=== PATIENT | male | born 1965 ===

== ENCOUNTER 2019-10-13 04:02 | Emergency (ER) | payer SELFPAY ==
[~2019-10-13] VITALS: Ht 172.7 cm; Wt 72.7 kg
[2019-10-13 04:54] LABS: HEMATOCRIT 41.1 % (39.0-50.0); HEMOGLOBIN 13.9 g/dl (14.0-18.0); IMMATURE GRANULOCYTES 0.2 % (0.0-5.0); MEAN CELL VOLUME 89.3 fL CALC (80.0-100.0); MEAN CORPUSCULAR HGB 30.2 pG CALC (26.0-32.0); MEAN CORPUSCULAR HGB CONC 33.8 g/dL CAL (32.0-36.0); NEUT# 6.59 thou/uL (1.82-7.42); RED BLOOD COUNT 4.6 mill/uL (4.70-6.10); RED CELL DISTRI WIDTH 12.7 % (11.5-15.5)
[2019-10-13 05:07] LABS: ACT PARTIAL THROMBO TIME 28.1 SECONDS (20.0-32.5); ALBUMIN 4.6 g/dL (3.2-5.0); ALKALINE PHOSPHATASE 93 u/l (38-126); ANION GAP 10 (6-22 (CALC)); BILIRUBIN, TOTAL 0.7 mg/dL (0.0-1.4); BUN 6 mg/dL (9-20); BUN/CREATININE RATIO 7 (12-20 (CALC)); CARBON DIOXIDE 29 mmol/l (22-30); CHLORIDE 100 mmol/l (95-108); CREATININE 0.9 mg/dL (0.7-1.3); GFR > 60 ML/MIN (>=60 (CALC)); GFR FOR AFR.AMER. > 60 ML/MIN (>=60 (CALC)); LIPASE 68 u/l (23-300); POTASSIUM 3.3 mmol/l (3.5-5.1); PROTHROMBIN TIME 9.6 SECONDS (9.0-12.5); SGOT/AST 25 u/l (17-59); SODIUM 136 mmol/l (137-146); TOTAL PROTEIN 8.4 g/dL (6.3-8.2)
[2019-10-13] MEDS ORDERED: CEPHALEXIN500 M1 PO (07:50)
[2019-10-13] MEDS ORDERED: BACTRIM DS1 TAB PO (07:50)
[2019-10-13 10:12] VITALS: BP 147/89
== END 2019-10-13 10:13 | disposition home or self-care (01) | DRG 603 ==
LOC: ED 04:02
DX: L03.116 Cellulitis of left lower limb (principal)

== ENCOUNTER 2022-05-22 14:52 | Emergency (ER) | payer OTHER ==
[~2022-05-22] VITALS: Ht 172.7 cm; Wt 79.3 kg
[~2022-05-22 14:52] MED LIST: BACTRIM DS1 TAB PO; CEPHALEXIN500 M1 PO
[2022-05-22 15:29] LABS: EOS% 6.7 % (0-8); HEMOGLOBIN 13.7 g/dl (14.0-18.0); LYMPH% 31.2 % (15-41); MEAN CELL VOLUME 89.6 fL CALC (80.0-100.0); MEAN CORPUSCULAR HGB 29.2 pG CALC (26.0-32.0); MEAN CORPUSCULAR HGB CONC 32.6 g/dL CAL (32.0-36.0); NEUT# 2.73 thou/uL (1.82-7.42); NEUT% 52.1 % (42-76); RED BLOOD COUNT 4.69 mill/uL (4.70-6.10); RED CELL DISTRI WIDTH 12.9 % (11.5-15.5)
[2022-05-22 15:40] LABS: ALBUMIN 4.5 g/dL (3.2-5.0); ALKALINE PHOSPHATASE 82 u/l (38-126); ANION GAP 10 (6-22 (CALC)); BUN 25 mg/dL (9-20); BUN/CREATININE RATIO 26 (12-20 (CALC)); CARBON DIOXIDE 25 mmol/l (22-30); CHLORIDE 107 mmol/l (95-108); ETHYL ALCOHOL 0 mg/dl (0-30); GFR FOR AFR.AMER. > 60 ML/MIN (>=60 (CALC)); GFR OTHER RACES > 60 ML/MIN (>=60 (CALC)); POTASSIUM 3.5 mmol/l (3.5-5.1); SGOT/AST 35 u/l (17-59); SODIUM 139 mmol/l (137-146); TOTAL PROTEIN 8.2 g/dL (6.3-8.2)
[2022-05-22 16:05] LABS: BILIRUBIN, TOTAL 0.4 mg/dL (0.2-1.3)
[2022-05-22 16:14] LABS: URINE BLOOD DIPSTICK NEGATIVE (NEGATIVE); URINE CLARITY CLEAR; URINE COLOR YELLOW; URINE GLUCOSE - DIPSTICK NEGATIVE (NEGATIVE); URINE KETONE NEGATIVE (NEGATIVE); URINE LEUK ESTERASE NEGATIVE (Negative); URINE NITRITE - DIPSTICK NEGATIVE (Negative); URINE PH 5.5 (4.5-8.0); URINE PROTEIN - DIPSTICK TRACE mg/dL (NEG-TRACE); URINE SPECIFIC GRAVITY >=1.030; URINE UROBILINOGEN - DIPSTICK 0.2 E.U./dL (0.2)
[2022-05-22 16:15] LABS: URINE BILIRUBIN - DIPSTICK SMALL (NEGATIVE)
[2022-05-22] MEDS ORDERED: NAPROXEN500 MG PO (18:03)
[2022-05-22] MEDS ORDERED: METHOCARBAMOL500 MG PO (18:03)
[2022-05-22 18:28] VITALS: BP 171/104
== END 2022-05-22 18:33 | disposition home or self-care (01) | DRG 552 ==
LOC: ED 14:52
PROVIDERS: Nurse Practitioner
DX: S16.1XXA Strain of muscle, fascia and tendon at neck level, initial encounter (principal); V43.52XA Car driver injured in collision with other type car in traffic accident, initial encounter
CPT/HCPCS: Q9967